=== PATIENT | male | born 1985 | race Caucasian/White ===

== ENCOUNTER 2016-10-14 01:25 | Emergency (ER) | payer OTHER ==
[2016-10-14 01:42] VITALS: BP 147/93; PULSE 101; TEMP 98.2; BMI 26.1
--- NOTE | 2016-10-14 02:23 | PDOC ---
History of Present Illness <Jaz Pennington - Last Filed: 10/14/16 03:07> - General History Source: Patient - History of Present Illness Initial Comments: 10/14/16 03:12 31-year-old male presents to the emergency department with his requesting for alcohol detox. Patient denies any headache, dizziness, lightheadedness, nausea/vomiting, fever/chills, neck pains, chest pain, shortness of breath, abdominal pains, flank pains, urinary symptoms, extremity numbness or tingling sensation. Patient states his last drink was earlier in the day. <RyderKathie - Last Filed: 10/14/16 03:13> - General Chief Complaint: Alcohol intoxication Stated Complaint: DETOX Time Seen by Provider: 10/14/16 02:20 Past History <Jaz Pennington - Last Filed: 10/14/16 03:07> - Past Medical History Anemia: No Asthma: No Cancer: No Cardiac Disorders: No CVA: No COPD: No CHF: No Dementia: No Diabetes: No GI Disorders: No Disorders: No HTN: No Hypercholesterolemia: No Kidney Stones: No Liver Disease: No Suicide Attempt (Hx): No Seizures: No Thyroid Disease: No - Surgical History Abdominal Surgery: No Appendectomy: No Cardiac Surgery: No Cholecystectomy: No Lung Surgery: No Neurologic Surgery: No Orthopedic Surgery: No - Reproductive History Testicular Surgery: No - Psycho/Social/Smoking Cessation Hx Anxiety: Yes Suicidal Ideation: No Smoking History: Never smoked Have you smoked in the past 12 months: No Hx Alcohol Use: Yes Drug/Substance Use Hx: No Substance Use Type: Alcohol Hx Substance Use Treatment: Yes <Kathie Soler - Last Filed: 10/14/16 03:13> - Past Medical History Allergies/Adverse Reactions: Allergies Allergy/AdvReac Type Severity Reaction Status Date / Time No Known Drug Allergies Allergy Unknown Verified 10/14/16 01:33 CASHEW Allergy Severe Swelling Uncoded 10/14/16 01:33 NKDA Allergy Uncoded 10/14/16 01:33 Home Medications: Ambulatory Orders NK [No Known Home Medication] 04/03/16 Review of Systems - Review of Systems Able to Perform ROS?: Yes Comments:: 10/14/16 03:13 CONSTITUTIONAL: Absent: fever, chills, diaphoresis, generalized weakness, malaise, loss of appetite HEENT: Absent: rhinorrhea, nasal congestion, throat pain, throat swelling, difficulty swallowing, mouth swelling, ear pain, eye pain, visual Changes CARDIOVASCULAR: Absent: chest pain, loss of consciousness, palpitations, irregular heart rate, peripheral edema RESPIRATORY: Absent: cough, shortness of breath, dyspnea with exertion, orthopnea, wheezing, stridor, hemoptysis GASTROINTESTINAL: Absent: abdominal pain, abdominal distension, nausea, vomiting, diarrhea, constipation, melena, hematochezia GENITOURINARY: Absent: dysuria, frequency, urgency, hesitancy, hematuria, flank pain, genital pain MUSCULOSKELETAL: Absent: myalgia, arthralgia, joint swelling SKIN: Absent: rash, itching, pallor HEMATOLOGIC/IMMUNOLOGIC: Absent: easy bleeding, easy bruising, lymphadenopathy, frequent infections ENDOCRINE: Absent: unexplained weight gain, unexplained weight loss, heat intolerance, cold intolerance NEUROLOGIC: Absent: headache, focal weakness or paresthesias, dizziness, unsteady gait, seizure, mental status changes, bladder or bowel incontinence PSYCHIATRIC: Absent: anxiety, depression, suicidal or homicidal ideation, hallucinations. Is the patient limited Icelandic proficient: No <Kathie Soler - Last Filed: 10/14/16 03:13> *Physical Exam - Vital Signs Last Vital Signs Temp Pulse Resp BP Pulse Ox 98.2 F 101 H 20 147/93 99 10/14/16 01:28 10/14/16 01:28 10/14/16 01:28 10/14/16 01:28 10/14/16 01:28 <Jaz Pennington - Last Filed: 10/14/16 03:07> - Vital Signs Last Vital Signs Temp Pulse Resp BP Pulse Ox 98.2 F 101 H 20 147/93 99 10/14/16 01:28 10/14/16 01:28 10/14/16 01:28 10/14/16 01:28 10/14/16 01:28 - Physical Exam Comments: 10/14/16 03:13 GENERAL: Well developed, well nourished. Awake and alert. No acute distress. HEENT: Normocephalic, atraumatic. PERRLA, EOMI. No conjunctival pallor. Sclera are non- icteric. Moist mucous membranes. Oropharynx is clear. NECK: Supple. Full ROM. No JVD. Carotid pulses 2+ and symmetric, without bruits. No thyromegaly. No lymphadenopathy. CARDIOVASCULAR: Regular rate and rhythm. No murmurs, rubs, or gallops. Distal pulses are 2+ and symmetric. PULMONARY: No evidence of respiratory distress. Lungs clear to auscultation bilaterally. No wheezing, rales or rhonchi. ABDOMINAL: Soft. Non-tender. Non-distended. No rebound or guarding. No organomegaly. Normoactive bowel sounds. MUSCULOSKELETAL Normal range of motion at all joints. No bony deformities or tenderness. No CVA tenderness. EXTREMITIES: No cyanosis. No clubbing. No edema. No calf tenderness. SKIN: Warm and dry. Normal capillary refill. No rashes. No jaundice. NEUROLOGICAL: Alert, awake, appropriate. Cranial nerves 2-12 intact. No deficits to light touch and temperature in face, upper extremities and lower extremities. No motor deficits in the in face, upper extremities and lower extremities. Normoreflexic in the upper and lower extremities. Normal speech. Toes are down- going bilaterally. Gait is normal without ataxia. PSYCHIATRIC: Cooperative. Good eye contact. Appropriate mood and affect. <Kathie Soler - Last Filed: 10/14/16 03:13> *DC/Admit/Observation/Transfer - Discharge Dispostion Admit: No <Jaz Pennington - Last Filed: 10/14/16 03:07> <Kathie Soler - Last Filed: 10/14/16 03:13> Diagnosis at time of Disposition: Alcohol dependence, Alcohol dependence with uncomplicated withdrawal - Discharge Dispostion Disposition: I.P. ALCOHOL/SUBS ABUSE REHAB Condition at time of disposition: Stable - Referrals Referrals: STAFF,NOT ON [Primary Care Provider] - - Patient Instructions Printed Discharge Instructions: DI for Alcohol Abuse
--- NOTE | 2016-10-18 17:35 | EKG ---
Test Reason : Blood Pressure : / mmHG Vent. Rate : 086 BPM Atrial Rate : 086 BPM P-R Int : 160 ms QRS Dur : 078 ms QT Int : 384 ms P-R-T Axes : 054 064 050 degrees QTc Int : 459 ms NORMAL SINUS RHYTHM NORMAL ECG WHEN COMPARED WITH ECG OF 20-JUN-2013 08:36, NO SIGNIFICANT CHANGE WAS FOUND Confirmed by ADRIANNA ORELLANA MD ([id number]) on 10/18/2016 5:35:06 PM Referred By: Confirmed By:ADRIANNA ORELLANA MD
== END 2016-10-14 03:15 | disposition other institution (70) ==
LOC: JER 01:25
DX: F10.120 Alcohol abuse with intoxication, uncomplicated (principal)
CPT/HCPCS: 93005; 93010; 99282-25

== ENCOUNTER 2016-10-14 03:26 | Inpatient (IN) | payer OTHER ==
--- NOTE | 2016-10-14 03:44 | HP ---
CIWA Score - CIWA Score Nausea/Vomitin Muscle Tremors: 4-Moderate,w/Arms Extend Anxiety: 3 Agitation: 3 Paroxysmal Sweats: 3 Orientation: 1-Uncertain about Date Tacttile Disturbances: 2-Mild Itch/Numbness/Burn Auditory Disturbances: 1-Very Mild Visual Disturbances: 1-Very Mild Sensitivity Headache: 2-Mild CIWA-Ar Total Score: 23 Admission ROS BHS - HPI Chief Complaint: WITHDRAWAL SYMPTOMS Allergies/Adverse Reactions: Allergies Allergy/AdvReac Type Severity Reaction Status Date / Time No Known Drug Allergies Allergy Unknown Verified 10/14/16 01:33 CASHEW Allergy Severe Swelling Uncoded 10/14/16 01:33 NKDA Allergy Uncoded 10/14/16 01:33 History of Present Illness: 31 Y.O. MAN WITH AN EXTENSIVE H/O OF ALCOHOL DEPENDENCE WAS SENT OVER FROM [facility] FOR DETOX. HE WAS LAST HERE FOR DETOX ON 04/06/16. HE HAS A H/O ETOH RELATED SEIZURES. Exam Limitations: Intoxication - Ebola screening Have you traveled outside of the country in the last 21 days: No - Review of Systems Constitutional: Loss of Appetite, Night Sweats, Changes in sleep EENT: reports: Double Vision, Tearing Respiratory: reports: Shortness of Breath Cardiac: reports: Lightheadedness GI: reports: Constipated : reports: No Symptoms Reported Musculoskeletal: reports: Neck Pain Integumentary: reports: No Symptoms Reported Neuro: reports: Numbness, Tingling, Tremors, Unsteady Gait Endocrine: reports: No Symptoms Reported Hematology: reports: No Symptoms Reported Psychiatric: reports: Mood/Affect Appropiate, Anxious Other Systems: Reviewed and Negative Patient History - Patient Medical History Hx Anemia: No Hx Asthma: No Hx Chronic Obstructive Pulmonary Disease (COPD): No Hx Cancer: No Hx Cardiac Disorders: No Hx Congestive Heart Failure: No Hx Hypertension: No Hx Hypercholesterolemia: No Hx Pacemaker: No HX Cerebrovascular Accident: No Hx Seizures: Yes (H/O ETOH RELATED SEIZURES) Hx Dementia: No Hx Diabetes: No Hx Gastrointestinal Disorders: No Hx Liver Disease: No Hx Genitourinary Disorders: No Hx Sexually Transmitted Disorders: No Hx Renal Disease (ESRD): No Hx Thyroid Disease: No Hx Human Immunodeficiency Virus (HIV): No Hx Hepatitis C: No Hx Depression: Yes Hx Suicide Attempt: No Hx Bipolar Disorder: No Hx Schizophrenia: No - Patient Surgical History Past Surgical History: No Hx Neurologic Surgery: No Hx Cataract Extraction: No Hx Cardiac Surgery: No Hx Lung Surgery: No Hx Breast Surgery: No Hx Breast Biopsy: No Hx Abdominal Surgery: No Hx Appendectomy: No Hx Cholecystectomy: No Hx Genitourinary Surgery: No Hx Section: No Hx Orthopedic Surgery: No Anesthesia Reaction: No - PPD History Previous Implant?: Yes Documented Results: Negative w/proof Implanted On Prior [facility] Admission?: Yes Date: 04/05/16 PPD to be Administered?: No - Reproductive History Patient is a Female of Child Bearing Age (11 -55 yrs old): No - Smoking Cessation Smoking history: Former smoker Have you smoked in the past 12 months: No Hx Chewing Tobacco Use: No Initiated information on smoking cessation: Yes 'Breaking Loose' booklet given: 10/14/16 - Substance & Tx. History Hx Alcohol Use: Yes Hx Substance Use: No Substance Use Type: Alcohol Hx Substance Use Treatment: Yes (DETOX ) - Substances Abused Alcohol Route: Oral Frequency: Daily Amount used: 2 PINTS OF LIQUOR + 6 PACKS OF BEER Age of first use: 16 Date of Last Use: 10/14/16 Family Disease History - Family Disease History Family Disease History: Heart Disease: Father (HTN), Other: Grandparent ( ALCOHOLISM), Mother (SLE) Admission Physical Exam BHS - Vital Signs Vital Signs: Last Vital Signs Temp Pulse Resp BP Pulse Ox 98 F 96 H 17 143/82 10/14/16 04:09 10/14/16 04:09 10/14/16 04:09 10/14/16 04:09 - Physical General Appearance: Yes: Alcohol on Breath, Intoxicated, Tremorous, Irritable, Anxious HEENTM: Yes: Normocephalic, Normal Voice Respiratory: Yes: Chest Non-Tender, Lungs Clear, Normal Breath Sounds, No Respiratory Distress, No Accessory Muscle Use Neck: Yes: No masses,lesions,Nodules, Trachea in good position Breast: Yes: Breast Exam Deferred Cardiology: Yes: Regular Rhythm, Regular Rate, S1, S2 Abdominal: Yes: Non Tender, Flat Genitourinary: Yes: Other (NO COMPLAINTS REPORTED) Back: Yes: Normal Inspection Musculoskeletal: Yes: Within Normal Limits Extremities: Yes: Tremors Neurological: Yes: Alert Integumentary: Yes: Normal Color, Dry, Warm Lymphatic: Yes: Within Normal Limits - Diagnostic (1) Alcohol dependence with uncomplicated withdrawal Current Visit: Yes Status: Chronic (2) History of seizure Current Visit: Yes Status: Chronic Cleared for Admission [facility] - Detox or Rehab [facility] Level of Care: Medically Managed Detox Regimen/Protocol: Librium S Breath Alcohol Content Breath Alcohol Content: 0.330 Vital Signs - Vital Signs Vital Signs Refused: No Temperature: 98 F Temperature Source: Oral Pulse Rate: 96 Respiratory Rate: 17 Blood Pressure: 143/82 BP Location: Left Arm Blood Pressure Position: Sitting - Height Height: 5 ft 6 in - Weight Weight: 160 lb Weight Measurement Method: Standing Scale Body Mass Index (BMI): 25.8 - Bowel Function Bowel Movement: Yes Urine Drug Screen - Test Device Lot Number: [id number] Expiration Date: 05/16/18 - Control Is Test Valid: Yes - Results Drug Screen Negative: Yes
[2016-10-14] MEDS ORDERED: ACETAMINOPHEN 325 MG TABLET (FP) PO PRN (03:54)
[2016-10-14] MEDS ORDERED: MAG HYDROX/AL HYDROX/SIMETH 30 ML UNIT-DOSE CUP PO PRN (03:54)
[2016-10-14] MEDS ORDERED: chlordiazePOXIDE HCL 25 MG CAPSULE PO ONE (03:54)
[2016-10-14] MEDS ORDERED: IBUPROFEN 400 MG TABLET (FP) PO PRN (03:54)
[2016-10-14] MEDS ORDERED: MAGNESIUM CITRATE 300 ML BOTTLE PO PRN (03:54)
[2016-10-14] MEDS ORDERED: P-EPHED 60MG/TRIPROLIDI 2.5MG TABLET PO PRN (03:54)
[2016-10-14] MEDS ORDERED: guaiFENesin/D-METHORPHAN HB 10 ML UNIT-DOSE CUPS PO PRN (03:54)
[2016-10-14] MEDS ORDERED: MENTHOL/PHENOL 1 EACH UD MM PRN (03:54)
[2016-10-14] MEDS ORDERED: MAGNESIUM HYDROX 2400MG/30ML ORAL SUSPENSION 30 ML CUP PO PRN (03:54)
[2016-10-14] MEDS ORDERED: LOPERAMIDE HCL 2 MG CAPSULE PO PRN (03:54)
[2016-10-14 04:09] VITALS: BMI 25.8
[2016-10-14] MEDS: chlordiazePOXIDE HCL 25 MG CAPSULE PO SCH ×4 (04:58→22:08)
[2016-10-14] MEDS: hydrOXYzine PAMOATE 50 MG CAPSULE (FP) PO PRN ×2 (08:29→15:08)
[2016-10-14] MEDS: chlordiazePOXIDE HCL 25 MG CAPSULE PO PRN ×3 (08:29→18:39)
[2016-10-14] MEDS: PRENATAL VITAMINS W/ FOLIC ACID TABLET (FP) PO SCH (10:55)
[2016-10-14 12:23] LABS: URINE APPEARANCE CLEAR; URINE BILIRUBIN NEGATIVE (NEGATIVE); URINE COLOR YELLOW; URINE GLUCOSE (UA) NEGATIVE (NEGATIVE); URINE KETONE 2+ (NEGATIVE); URINE LEUK ESTERASE NEGATIVE (NEGATIVE); URINE NITRITE NEGATIVE (NEGATIVE); URINE UROBILINOGEN NEGATIVE E.U./dl (0.2-1.0)
[2016-10-14 12:25] LABS: URINE BLOOD 2+ (NEGATIVE); URINE PROTEIN 2+ (NEGATIVE)
[2016-10-14 12:34] LABS: GRANULAR CASTS 11 /lpf; URINE HYALINE CAST 3 /lpf; URINE MUCUS RARE; URINE RBC <1 /hpf (0-3); URINE WBC 1 /hpf (3-5)
--- NOTE | 2016-10-14 16:07 | PN ---
S Progress Note Note: patient complaint of palpitation and heart is racing ekg showed nsr,normal ekg,rate 97 impresion anxiety treatment vistaril 50 mgs po q 4hrs prn for anxiety close monitoring,continue detox
[2016-10-14] MEDS: THIAMINE HCL 100 MG TABLET (FP) PO SCH (22:08)
--- NOTE | 2016-10-15 00:13 | EKG ---
Test Reason : Blood Pressure : / mmHG Vent. Rate : 081 BPM Atrial Rate : 081 BPM P-R Int : 156 ms QRS Dur : 084 ms QT Int : 408 ms P-R-T Axes : 044 067 068 degrees QTc Int : 473 ms NORMAL SINUS RHYTHM NORMAL ECG WHEN COMPARED WITH ECG OF 14-OCT-2016 02:25, NO SIGNIFICANT CHANGE WAS FOUND Confirmed by ADRIANNA ORELLANA MD ([id number]) on 10/15/2016 12:13:09 AM Referred By: Confirmed By:ADRIANNA ORELLANA MD
[2016-10-15] MEDS: chlordiazePOXIDE HCL 25 MG CAPSULE PO SCH ×4 (06:03→22:17)
[2016-10-15 10:00] LABS: MCH 28.1 pg (25.7-33.7); MCHC 32.7 g/dl (32.0-35.9); MEAN CELL VOLUME 85.8 fl (80-96); MEAN PLT VOLUME 8.2 fl (7.5-11.1); PLATELET COUNT 96 K/MM3 (134-434); RDW 13.1 % (11.9-15.9); WHITE BLOOD COUNT 2.3 K/mm3 (4.0-10.0)
[2016-10-15 10:03] LABS: ALBUMIN 4.2 g/dl (3.4-5.0); ANION GAP 9 (8-16); CALCIUM 9.1 mg/dL (8.5-10.1); CO2 34 mmol/L (21-32); GLUCOSE,RANDOM 99 mg/dL (74-106)
[2016-10-15 10:05] LABS: ALK PHOS 73 U/L (45-117); BILIRUBIN,TOTAL 1.3 mg/dL (0.2-1.0); COCKROFT - GAULT 120.95; CREATININE 0.9 mg/dL (0.7-1.3); SGOT/AST 100 U/L (15-37); SGPT/ALT 106 U/L (12-78); TOT PROT 7.7 g/dl (6.4-8.2)
--- NOTE | 2016-10-15 10:21 | EKG ---
Test Reason : Blood Pressure : / mmHG Vent. Rate : 097 BPM Atrial Rate : 097 BPM P-R Int : 148 ms QRS Dur : 078 ms QT Int : 368 ms P-R-T Axes : 056 066 067 degrees QTc Int : 467 ms NORMAL SINUS RHYTHM NORMAL ECG WHEN COMPARED WITH ECG OF 14-OCT-2016 10:16, NO SIGNIFICANT CHANGE WAS FOUND Confirmed by CHARI RODRIGUEZ MD ([id number]) on 10/15/2016 10:21:44 AM Referred By: Tha Kapoor Confirmed By:CHARI RODRIGUEZ MD
--- NOTE | 2016-10-15 10:28 | PN ---
S CIWA - CIWA Score Nausea/Vomitin Muscle Tremors: 4-Moderate,w/Arms Extend Anxiety: 4-Mod. Anxious/Guarded Agitation: 3 Paroxysmal Sweats: 3 Orientation: 0-Oriented Tacttile Disturbances: 2-Mild Itch/Numbness/Burn Auditory Disturbances: 0-None Visual Disturbances: 0-None Headache: 0-None Present CIWA-Ar Total Score: 19 BHS Progress Note (SOAP) Subjective: interrupted sleep, cold sweats,anxious Objective: 10/15/16 10:25 Vital Signs Temperature 97.2 F L 10/15/16 06:00 Pulse Rate 75 10/15/16 06:00 Respiratory Rate 18 10/15/16 06:00 Blood Pressure 142/92 10/15/16 06:00 O2 Sat by Pulse Oximetry (%) Laboratory Tests 10/14/16 10/15/16 10/15/16 12:06 07:00 07:00 WBC 2.3 L D RBC 5.56 Hgb 15.6 Hct 47.7 MCV 85.8 MCHC 32.7 RDW 13.1 Plt Count 96 L D MPV 8.2 Sodium 135 L Potassium 3.5 Chloride 92 L Carbon Dioxide 34 H D Anion Gap 9 BUN 8 D Creatinine 0.9 Creat Clearance w eGFR > 60 Random Glucose 99 D Calcium 9.1 Total Bilirubin 1.3 H D AST 100 H D ALT 106 H D Alkaline Phosphatase 73 Total Protein 7.7 Albumin 4.2 Urine Color Yellow Urine Appearance Clear Urine pH 5.0 Ur Specific [place] 1.019 Urine Protein 2+ H Urine Glucose (UA) Negative Urine Ketones 2+ H Urine Blood 2+ H Urine Nitrite Negative Urine Bilirubin Negative Urine Urobilinogen Negative Ur Leukocyte Esterase Negative Urine RBC <1 Urine WBC 1 Ur Epithelial Cells Rare Hyaline Casts 3 Granular Casts 11 Urine Mucus Rare pt aox3 lying in bed , + tremors, +anxiety 10/15/16 10:27 Assessment: 10/15/16 10:27 withdrawal sx;s elevated transaminase leucopenia thrombocytoppenia 10/15/16 10:28 Plan: cont. detox increase fluids librium prn sgot/sgpt
[2016-10-15] MEDS: PRENATAL VITAMINS W/ FOLIC ACID TABLET (FP) PO SCH (11:02)
--- NOTE | 2016-10-15 12:57 | CONSULT ---
[facility] Psychiatric Consult - Data Date of interview: 10/15/16 Admission source: [facility] Identifying data: Readmission to [facility] for this 31 y/o Burmese male seeking detox treatment,on ,for alcohol dependence.Patient is single without children,domiciled and supported on odd jobs. Substance Abuse History: - Smoking Cessation. Smoking history: Former smoker. Have you smoked in the past 12 months: No. Hx Chewing Tobacco Use: No. Initiated information on smoking cessation: Yes. 'Breaking Loose' booklet given : 10/14/16. - Substance & Tx. History. Hx Alcohol Use: Yes. Hx Substance Use : No. Substance Use Type: Alcohol. Hx Substance Use Treatment: Yes (DETOX ). - Substances Abused. Alcohol. Route: Oral. Frequency: Daily. Amount used : 2 PINTS OF LIQUOR + 6 PACKS OF BEER. Age of first use: 16. Date of Last Use : 10/14/16. Confirmed by patient. Medical History: Patient endorses good general health. Psychiatric History: No reported history of psychiatric hospitalizations.Mr Ornelas indicates that he is currently seeing a private therapist to address anxiety issues (only psychotherapy).Patient denies history of suicide attempts. Physical/Sexual Abuse/Trauma History: Patient denies. Additional Comment: - Results. Drug Screen is negative. Mental Status Exam - Mental Status Exam Alert and Oriented to: Time, Place, Person Cognitive Function: Good Patient Appearance: Well Groomed Mood: Withdrawn, Anxious, Apprehensive Affect: Mood Congruent Patient Behavior: Fatigued, Appropriate, Cooperative Speech Pattern: Clear Voice Loudness: Normal Thought Process: Goal Oriented Thought Disorder: Not Present Hallucinations: Denies Suicidal Ideation: Denies Homicidal Ideation: Denies Insight/Judgement: Poor Sleep: Poorly, Difficulty falling asleep Appetite: Good Muscle strength/Tone: Normal Gait/Station: Normal Psychiatric Findings - Problem List ([place] 1, 2,3) (1) Alcohol dependence with uncomplicated withdrawal Current Visit: Yes Status: Acute (2) Alcohol-induced mood disorder Current Visit: Yes Status: Acute (3) Insomnia Current Visit: Yes Status: Acute - Initial Treatment Plan Initial Treatment Plan: Psychoeducation.Sleep hygiene discussed with patient.Medication : ambien 10 mg po hs.Ordered.Patient made aware of potential for parasomnias.He agrees with this careplan.Observation.
[2016-10-15] MEDS: chlordiazePOXIDE HCL 25 MG CAPSULE PO PRN (15:37)
[2016-10-15] MEDS ORDERED: ZOLPIDEM TARTRATE 10 MG TABLET (PARK CARE ONLY) PO PRN (22:00)
[2016-10-15] MEDS: THIAMINE HCL 100 MG TABLET (FP) PO SCH (22:18)
[2016-10-15] MEDS: diphenhydrAMINE HCL 50 MG CAPSULE PO PRN (23:09)
[2016-10-16] MEDS: chlordiazePOXIDE 5 MG CAPSULE PO SCH ×4 (06:13→22:16)
[2016-10-16 10:22] LABS: SGOT/AST 138 U/L (15-37); SGPT/ALT 114 U/L (12-78)
[2016-10-16] MEDS: PRENATAL VITAMINS W/ FOLIC ACID TABLET (FP) PO SCH (10:49)
[2016-10-16] MEDS: hydrOXYzine PAMOATE 50 MG CAPSULE (FP) PO PRN (10:49)
--- NOTE | 2016-10-16 11:22 | PN ---
[facility] CIWA - CIWA Score Nausea/Vomitin-No Nausea/No Vomiting Muscle Tremors: 3 Anxiety: 2 Agitation: 3 Paroxysmal Sweats: 3 Orientation: 0-Oriented Tacttile Disturbances: 0-None Auditory Disturbances: 0-None Visual Disturbances: 0-None Headache: 0-None Present CIWA-Ar Total Score: 11 [facility] Progress Note (SOAP) Subjective: sweats irritable agitation Objective: 10/16/16 11:21 Vital Signs Temperature 97.3 F L 10/16/16 09:45 Pulse Rate 74 10/16/16 09:45 Respiratory Rate 16 10/16/16 09:45 Blood Pressure 124/68 10/16/16 09:45 O2 Sat by Pulse Oximetry (%) Laboratory Tests 10/14/16 10/15/16 10/15/16 12:06 07:00 07:00 WBC 2.3 L D RBC 5.56 Hgb 15.6 Hct 47.7 MCV 85.8 MCHC 32.7 RDW 13.1 Plt Count 96 L D MPV 8.2 Sodium 135 L Potassium 3.5 Chloride 92 L Carbon Dioxide 34 H D Anion Gap 9 BUN 8 D Creatinine 0.9 Creat Clearance w eGFR > 60 Random Glucose 99 D Calcium 9.1 Total Bilirubin 1.3 H D AST 100 H D ALT 106 H D Alkaline Phosphatase 73 Total Protein 7.7 Albumin 4.2 Urine Color Yellow Urine Appearance Clear Urine pH 5.0 Ur Specific [place] 1.019 Urine Protein 2+ H Urine Glucose (UA) Negative Urine Ketones 2+ H Urine Blood 2+ H Urine Nitrite Negative Urine Bilirubin Negative Urine Urobilinogen Negative Ur Leukocyte Esterase Negative Urine RBC <1 Urine WBC 1 Ur Epithelial Cells Rare Hyaline Casts 3 Granular Casts 11 Urine Mucus Rare RPR Titer 10/15/16 10/16/16 07:00 07:00 WBC RBC Hgb Hct MCV MCHC RDW Plt Count MPV Sodium Potassium Chloride Carbon Dioxide Anion Gap BUN Creatinine Creat Clearance w eGFR Random Glucose Calcium Total Bilirubin AST 138 H D ALT 114 H Alkaline Phosphatase Total Protein Albumin Urine Color Urine Appearance Urine pH Ur Specific [place] Urine Protein Urine Glucose (UA) Urine Ketones Urine Blood Urine Nitrite Urine Bilirubin Urine Urobilinogen Ur Leukocyte Esterase Urine RBC Urine WBC Ur Epithelial Cells Hyaline Casts Granular Casts Urine Mucus RPR Titer Nonreactive awake/alert ambulating no acute distress Assessment: 10/16/16 11:21 withdrawal sx Plan: continue detox increase fluids d/c in am
[2016-10-16] MEDS: THIAMINE HCL 100 MG TABLET (FP) PO SCH (22:16)
[2016-10-17] MEDS: diphenhydrAMINE HCL 50 MG CAPSULE PO PRN (00:41)
[2016-10-17] MEDS: chlordiazePOXIDE HCL 10 MG CAPSULE PO SCH ×2 (06:18→10:53)
--- NOTE | 2016-10-17 09:10 | DS ---
[facility] Detox Discharge Summary Admission Date: 10/14/16 Discharge Date: 10/17/16 - History Present History: Alcohol Dependence - Physical Exam Results Vital Signs: Vital Signs Temperature 97 F L 10/17/16 06:34 Pulse Rate 56 L 10/17/16 06:34 Respiratory Rate 16 10/17/16 06:34 Blood Pressure 100/58 10/17/16 06:34 O2 Sat by Pulse Oximetry (%) - Treatment Hospital Course: Detox Protocol Followed, Detoxed Safely, Responded well, Discharged Condition Good - Medication Discharge Medications: Ambulatory Orders NK [No Known Home Medication] 04/03/16 - Diagnosis (1) Alcohol dependence with uncomplicated withdrawal Current Visit: Yes Status: Chronic (2) Insomnia Current Visit: Yes Status: Chronic Qualifiers: Insomnia type: unspecified Qualified Code(s): G47.00 - Insomnia, unspecified (3) History of seizure Current Visit: Yes Status: Chronic - AMA Did Patient Leave Against Medical Advice: No
[2016-10-17 09:48] VITALS: BP 130/92; PULSE 7; TEMP 97.3
[2016-10-17] MEDS: PRENATAL VITAMINS W/ FOLIC ACID TABLET (FP) PO SCH (10:52)
== END 2016-10-17 11:57 | disposition other institution (70) | DRG 775 ==
LOC: YASAS 03:26 → Y6N 03:36
PROVIDERS: ADMIT Internal Medicine; ATTEND Internal Medicine Addiction Medicine
PROC: HZ2ZZZZ Detoxification Services for Substance Abuse Treatment (ICD-10-PCS; principal; 2016-10-14)
DX: F10.230 Alcohol dependence with withdrawal, uncomplicated (principal); F10.24 Alcohol dependence with alcohol-induced mood disorder; F41.9 Anxiety disorder, unspecified; G47.00 Insomnia, unspecified; R74.0 Nonspecific elevation of levels of transaminase and lactic acid dehydrogenase [LDH]; D72.819 Decreased white blood cell count, unspecified; D69.6 Thrombocytopenia, unspecified; Z86.69 Personal history of other diseases of the nervous system and sense organs; Z87.891 Personal history of nicotine dependence
CPT/HCPCS: 36415; 80053; 81003; 81015; 84450; 84460; 85027; 86593; 93005; 93010

== ENCOUNTER 2016-10-17 12:14 | Inpatient (IN) | payer OTHER ==
[2016-10-17] MEDS ORDERED: MENTHOL/PHENOL 1 EACH UD MM PRN (14:26)
[2016-10-17] MEDS ORDERED: MAG HYDROX/AL HYDROX/SIMETH 30 ML UNIT-DOSE CUP PO PRN (14:26)
[2016-10-17] MEDS ORDERED: guaiFENesin/D-METHORPHAN HB 10 ML UNIT-DOSE CUPS PO PRN (14:26)
[2016-10-17] MEDS ORDERED: MAGNESIUM HYDROX 2400MG/30ML ORAL SUSPENSION 30 ML CUP PO PRN (14:26)
[2016-10-17] MEDS ORDERED: LOPERAMIDE HCL 2 MG CAPSULE PO PRN (14:26)
[2016-10-17] MEDS ORDERED: P-EPHED 60MG/TRIPROLIDI 2.5MG TABLET PO PRN (14:26)
[2016-10-17] MEDS ORDERED: MAGNESIUM CITRATE 300 ML BOTTLE PO PRN (14:26)
[2016-10-17] MEDS ORDERED: IBUPROFEN 400 MG TABLET (FP) PO PRN (14:26)
--- NOTE | 2016-10-17 21:15 | HP ---
[facility] Rehab Assess/Revision - Admission History Admitted to Rehab from: [facility] Date of Admission to Rehab: 10/17/16 - Vital signs Vital Signs: Vital Signs Period Temp Pulse Resp BP Sys/Resendiz Pulse Ox Last 24 Hr 98.1 F 89 18 127/70 - Findings Detox History & Physical reviewed: Yes Concur with findings: Yes Comments/Additional Findings: transferred from detox to rehab admission as per protocol
[2016-10-17] MEDS: THIAMINE HCL 100 MG TABLET (FP) PO SCH (21:40)
[2016-10-17] MEDS: diphenhydrAMINE HCL 50 MG CAPSULE PO PRN (22:02)
[2016-10-18] MEDS: PRENATAL VITAMINS W/ FOLIC ACID TABLET (FP) PO SCH (10:07)
[2016-10-18] MEDS ORDERED: hydrOXYzine PAMOATE 25 MG CAPSULE (FP) PO PRN (14:26)
--- NOTE | 2016-10-18 14:47 | HP ---
Psychiatrist Admission - Data Date of interview: 10/18/16 Admission source: 6N Identifying data: This is the first 5N inpatient rehabilitation for this 31 year old Salvadorean male who is single without children,domiciled and supported on odd jobs. Medical History: alcohol related seizure, last seizure episode was 10/13/16 Psychiatric History: Patient reports history of anxiety, social phobia and panic attacks, never met with a psychiatrist, states he saw a [facility] therapist and was in therapy sessions once a week about 2 years, he reports due to not having medical coverage he could not continue his treatment and stopped seing a therapist 2 years ago. Reports he currently anxious and cannot sleep well. Physical/Sexual Abuse/Trauma History: Denies history of sexual, physical and verbal abuse. Additional Comment: reports he dropped out from 11 th grade, has some work experience, has a half brother. Vital Signs: Vital Signs - 24 hr 10/18/16 10/18/16 10/18/16 00:44 03:50 07:02 Temperature 97.6 F Pulse Rate 71 71 66 Respiratory 15 16 18 Rate Blood Pressure 131/82 Allergies/Adverse Reactions: Allergies Allergy/AdvReac Type Severity Reaction Status Date / Time No Known Drug Allergies Allergy Unknown Verified 10/17/16 12:24 CASHEW Allergy Severe Swelling Uncoded 10/17/16 12:24 NKDA Allergy Uncoded 10/17/16 12:24 Date of last physical exam: 10/14/16 Concur with the findings of this exam: Yes - Substance Abuse/Tx History Hx Alcohol Use: Yes (daily 1 pint of vodka, beer) Hx Substance Use: No Substance Use Type: Alcohol Hx Substance Use Treatment: Yes (I outpatient not completed) - Admission Criteria Previous failed treatment: Yes Poor recovery environment: Yes Comorbidities: Yes Lacks judgement: Yes Mental Status Exam - Mental Status Exam Alert and Oriented to: Time, Place, Person Cognitive Function: Grossly Intact Patient Appearance: Well Groomed Mood: Anxious Affect: Mood Congruent, Flat, Blunted Patient Behavior: Suspicious, Appropriate, Cooperative Speech Pattern: Appropriate Voice Loudness: Normal Thought Process: Intact Thought Disorder: Not Present Hallucinations: Denies Suicidal Ideation: Denies Homicidal Ideation: Denies Insight/Judgement: Fair Sleep: Poorly, Difficulty falling asleep Appetite: Fair Muscle strength/Tone: Normal Psychiatric Findings - Problem List ([place] 1, 2,3) (1) Alcohol dependence Current Visit: No Status: Acute (2) Alcohol-induced mood disorder Current Visit: No Status: Acute (3) RODOLFO (generalized anxiety disorder) Current Visit: Yes Status: Acute (4) Panic disorder Current Visit: Yes Status: Acute - Initial Treatment Plan Initial Treatment Plan: Discussed with the patient indications and properties of remeron, campral, gabapentin, patient reported that he will start only remeron. Will add remeron and vistaril prn, continue to monotor progress.
[2016-10-18] MEDS: diphenhydrAMINE HCL 50 MG CAPSULE PO PRN (22:02)
[2016-10-18] MEDS: THIAMINE HCL 100 MG TABLET (FP) PO SCH (22:02)
[2016-10-18] MEDS: MIRTAZAPINE 15 MG TABLET (FP) PO SCH (22:03)
[2016-10-19] MEDS: PRENATAL VITAMINS W/ FOLIC ACID TABLET (FP) PO SCH (10:14)
[2016-10-19] MEDS: MIRTAZAPINE 15 MG TABLET (FP) PO SCH (21:52)
[2016-10-19] MEDS: diphenhydrAMINE HCL 50 MG CAPSULE PO PRN (21:52)
[2016-10-19] MEDS: THIAMINE HCL 100 MG TABLET (FP) PO SCH (21:52)
[2016-10-20 07:26] VITALS: BP 124/65; PULSE 68; TEMP 97.4
[2016-10-20] MEDS: PRENATAL VITAMINS W/ FOLIC ACID TABLET (FP) PO SCH (13:32)
--- NOTE | 2016-10-22 13:54 | PN ---
S Progress Note Note: Patient signed out AMA on October,, please see medical staff notes.
== END 2016-10-20 09:00 | disposition left against medical advice (07) | DRG 770 ==
LOC: YASAS 12:14 → Y5N 12:15
PROVIDERS: ADMIT Psychiatry & Neurology Psychiatry; ATTEND Psychiatry & Neurology Psychiatry
PROC: HZ42ZZZ Group Counseling for Substance Abuse Treatment, Cognitive-Behavioral (ICD-10-PCS; principal; 2016-10-20)
DX: F10.230 Alcohol dependence with withdrawal, uncomplicated (principal); F10.24 Alcohol dependence with alcohol-induced mood disorder; F41.1 Generalized anxiety disorder; F41.0 Panic disorder [episodic paroxysmal anxiety]

== ENCOUNTER 2017-02-24 09:00 | Inpatient (IN) | payer OTHER ==
[2017-02-24 09:35] VITALS: BMI 25.8
--- NOTE | 2017-02-24 09:49 | PN ---
S Progress Note Note: Pt. C/O chest pain,palpitation & numbness/weakness on the left side of body. Pt. consumes vodka 2-4 pints! Last Vital Signs Temp Pulse Resp BP Pulse Ox 98.1 F 108 H 20 144/93 98 % 02/24/17 09:34 02/24/17 09:34 02/24/17 09:34 02/24/17 09:34 RICHARD .353 Lungs : Clear A&P Heart : RR at HR 108-110 Dx. : 1)Non-specific chest pain 2)Left side Numbness/Weakness of undetermined etiology P : Transfer to ED for evaluation, report given to Dr. Edwards. If pt. is cleared, he'll return for admission to detox.
--- NOTE | 2017-02-24 17:31 | HP ---
CIWA Score - CIWA Score Nausea/Vomitin Muscle Tremors: 4-Moderate,w/Arms Extend Anxiety: 4-Mod. Anxious/Guarded Agitation: 4-Moderately Restless Paroxysmal Sweats: 3 Orientation: 0-Oriented Tacttile Disturbances: 1-Very Mild Itch/Numbness Auditory Disturbances: 0-None Visual Disturbances: 0-None Headache: 0-None Present CIWA-Ar Total Score: 19 Admission ROS BHS - HPI Chief Complaint: Withdrawal sx. Allergies/Adverse Reactions: Allergies Allergy/AdvReac Type Severity Reaction Status Date / Time No Known Drug Allergies Allergy Unknown Verified 02/24/17 10:41 CASHEW Allergy Severe Swelling Uncoded 02/24/17 10:41 NKDA Allergy Uncoded 02/24/17 10:41 History of Present Illness: 32 y/o man with a long hx. of alcoholism is admitted for detox. Pt. was here earlier & c/o chest pain,we sent him to ED for evaluation. Two sets of cardiac enzymes are negative. Exam Limitations: No Limitations - Ebola screening Have you traveled outside of the country in the last 21 days: No Have you had contact with anyone from an Ebola affected area: No Have you been sick,other than usual withdrawal symptoms: No Do you have a fever: No - Review of Systems Constitutional: Diaphoresis EENT: reports: No Symptoms Reported Respiratory: reports: No Symptoms reported Cardiac: reports: No Symptoms Reported GI: reports: Nausea, Vomiting, Abdominal cramping : reports: No Symptoms Reported Musculoskeletal: reports: No Symptoms Reported Integumentary: reports: Sweating Neuro: reports: Seizure (Alcohol withdrawal), Tremors Endocrine: reports: No Symptoms Reported Hematology: reports: No Symptoms Reported Psychiatric: reports: No Sypmtoms Reported Other Systems: Reviewed and Negative Patient History - Patient Medical History Hx Anemia: No Hx Asthma: No Hx Chronic Obstructive Pulmonary Disease (COPD): No Hx Cancer: No Hx Cardiac Disorders: No Hx Congestive Heart Failure: No Hx Hypertension: No Hx Hypercholesterolemia: No Hx Pacemaker: No HX Cerebrovascular Accident: No Hx Seizures: Yes (alcohol related seizure) Hx Dementia: No Hx Diabetes: No Hx Gastrointestinal Disorders: No Hx Liver Disease: No Hx Genitourinary Disorders: No Hx Sexually Transmitted Disorders: No Hx Renal Disease (ESRD): No Hx Thyroid Disease: No Hx Human Immunodeficiency Virus (HIV): No Hx Hepatitis C: No Hx Depression: No (RODOLFO) Hx Suicide Attempt: No Hx Bipolar Disorder: No Hx Schizophrenia: No - Patient Surgical History Past Surgical History: No Hx Neurologic Surgery: No Hx Cataract Extraction: No Hx Cardiac Surgery: No Hx Lung Surgery: No Hx Breast Surgery: No Hx Breast Biopsy: No Hx Abdominal Surgery: No Hx Appendectomy: No Hx Cholecystectomy: No Hx Genitourinary Surgery: No Hx Section: No Hx Orthopedic Surgery: No Anesthesia Reaction: No - PPD History Previous Implant?: Yes Documented Results: Negative w/proof Implanted On Prior [facility] Admission?: Yes Date: 04/05/16 Results: 0 mm PPD to be Administered?: No - Smoking Cessation Smoking history: Former smoker (Quit in 2004) Have you smoked in the past 12 months: No Cigars Per Day: 0 Hx Chewing Tobacco Use: No Initiated information on smoking cessation: No - Substance & Tx. History Hx Alcohol Use: Yes Hx Substance Use: No Substance Use Type: Alcohol Hx Substance Use Treatment: Yes (Detox at [facility] 09/2016) - Substances Abused Alcohol Route: Oral Frequency: Daily Amount used: Vodka 2-4 pints Age of first use: 16 Date of Last Use: 02/24/17 Family Disease History - Family Disease History Family Disease History: Heart Disease: Father (HTN), Other: Grandparent ( ALCOHOLISM), Mother (SLE) Admission Physical Exam S - Vital Signs Vital Signs: Vital Signs - 24 hr 02/24/17 02/24/17 09:34 17:15 Temperature 98.1 F 98.1 F Pulse Rate 108 H 108 H Respiratory 20 20 Rate Blood Pressure 144/93 144/93 - Physical General Appearance: Yes: Alcohol on Breath, Tremorous, Irritable, Sweating, Anxious HEENTM: Yes: Within Normal Limits Respiratory: Yes: Chest Non-Tender, Lungs Clear, Normal Breath Sounds Neck: Yes: Supple Breast: Yes: Breast Exam Deferred Cardiology: Yes: Regular Rhythm, Regular Rate, S1, S2 Abdominal: Yes: Normal Bowel Sounds, Non Tender, Soft Genitourinary: Yes: Within Normal Limits Back: Yes: Within Normal Limits Musculoskeletal: Yes: Within Normal Limits Extremities: Yes: Tremors Neurological: Yes: Fully Oriented, Alert Integumentary: Yes: Diaphoresis Lymphatic: Yes: Within Normal Limits - Diagnostic (1) Alcohol dependence with uncomplicated withdrawal Current Visit: No Status: Chronic Cleared for Admission [facility] - [facility] Level of Care: Medically Managed Detox Regimen/Protocol: Librium [facility] Breath Alcohol Content Breath Alcohol Content: 0.353 Urine Drug Screen - Results Drug Screen Negative: Yes
[2017-02-24] MEDS ORDERED: P-EPHED 60MG/TRIPROLIDI 2.5MG TABLET PO PRN (17:41)
[2017-02-24] MEDS ORDERED: guaiFENesin/D-METHORPHAN HB 10 ML UNIT-DOSE CUPS PO PRN (17:41)
[2017-02-24] MEDS ORDERED: ACETAMINOPHEN 325 MG TABLET (FP) PO PRN (17:41)
[2017-02-24] MEDS ORDERED: MAGNESIUM HYDROX 2400MG/30ML ORAL SUSPENSION 30 ML CUP PO PRN (17:41)
[2017-02-24] MEDS ORDERED: MAG HYDROX/AL HYDROX/SIMETH 30 ML UNIT-DOSE CUP PO PRN (17:41)
[2017-02-24] MEDS ORDERED: IBUPROFEN 400 MG TABLET (FP) PO PRN (17:41)
[2017-02-24] MEDS ORDERED: hydrOXYzine PAMOATE 50 MG CAPSULE (FP) PO PRN (17:41)
[2017-02-24] MEDS ORDERED: MENTHOL/PHENOL 1 EACH UD MM PRN (17:41)
[2017-02-24] MEDS ORDERED: MAGNESIUM CITRATE 300 ML BOTTLE PO PRN (17:41)
[2017-02-24] MEDS ORDERED: LOPERAMIDE HCL 2 MG CAPSULE PO PRN (17:41)
[2017-02-24] MEDS ORDERED: chlordiazePOXIDE HCL 25 MG CAPSULE PO PRN (17:41)
[2017-02-24] MEDS ORDERED: chlordiazePOXIDE HCL 25 MG CAPSULE PO ONE (17:41)
[2017-02-24 20:22] LABS: URINE APPEARANCE SLCLOUDY; URINE BILIRUBIN NEGATIVE (NEGATIVE); URINE BLOOD 2+ (NEGATIVE); URINE COLOR AMBER; URINE GLUCOSE (UA) 1+ (NEGATIVE); URINE KETONE 2+ (NEGATIVE); URINE LEUK ESTERASE NEGATIVE (NEGATIVE); URINE NITRITE NEGATIVE (NEGATIVE); URINE UROBILINOGEN NEGATIVE mg/dL (0.2-1.0)
[2017-02-24 20:24] LABS: URINE PROTEIN 3+ (NEGATIVE)
[2017-02-24 20:26] LABS: GRANULAR CASTS 39 /lpf; URINE HYALINE CAST 2 /lpf; URINE MUCUS MANY; URINE RBC 1 /hpf (0-3); URINE WBC 4 /hpf (3-5)
[2017-02-24] MEDS: chlordiazePOXIDE HCL 25 MG CAPSULE PO SCH (22:46)
[2017-02-24] MEDS: THIAMINE HCL 100 MG TABLET (FP) PO SCH (22:46)
[2017-02-24] MEDS: diphenhydrAMINE HCL 50 MG CAPSULE PO PRN (22:47)
[2017-02-25] MEDS: chlordiazePOXIDE HCL 25 MG CAPSULE PO SCH ×4 (05:22→22:39)
--- NOTE | 2017-02-25 08:51 | CONSULT ---
[facility] Psychiatric Consult - Data Date of interview: 02/25/17 Admission source: [facility] Identifying data: This is 32 years old male with no psychiatric hospitalization history ijntoxicated with: Alcohol Substance Abuse History: D to be Administered?: No. - Smoking Cessation. Smoking history: Former smoker (Quit in 2004). Have you smoked in the past 12 months: No. Cigars Per Day: 0. Hx Chewing Tobacco Use: No. Initiated information on smoking cessation: No. - Substance & Tx. History. Hx Alcohol Use: Yes. Hx Substance Use: No. Substance Use Type: Alcohol. Hx Substance Use Treatment: Yes (Detox at [facility] 09/2016). - Substances Abused. Alcohol. Route: Oral. Frequency: Daily. Amount used: Vodka 2-4 pints. Age of first use : 16. Date of Last Use: 02/24/17 Medical History: Seizure history Psychiatric History: Patioent reprots anxiety, as per chart carries RODOLFO, Panic disordr Physical/Sexual Abuse/Trauma History: Denies Additional Comment: Observation. Detox Unit Care Protocol Mental Status Exam - Mental Status Exam Alert and Oriented to: Person Cognitive Function: Fair Patient Appearance: Unkempt Mood: Sad Patient Behavior: Guarded Speech Pattern: Delayed Voice Loudness: Mildly Soft/Quiet Thought Process: Circumstantial Thought Disorder: Being Controlled Hallucinations: Denies Suicidal Ideation: Denies Homicidal Ideation: Denies Sleep: Difficulty falling asleep Appetite: Weight loss Muscle strength/Tone: Mild Hypotonicity Gait/Station: Shuffling Additional Comments: Observation. Detox Unit Care Protocol Psychiatric Findings - Problem List ([place] 1, 2,3) (1) Alcohol dependence Current Visit: No Status: Acute (2) Alcohol-induced mood disorder Current Visit: No Status: Acute (3) RODOLFO (generalized anxiety disorder) Current Visit: No Status: Acute (4) Panic disorder Current Visit: No Status: Acute (5) Alcohol dependence with uncomplicated withdrawal Current Visit: No Status: Chronic - Initial Treatment Plan Initial Treatment Plan: Observation. Detox Unit Care Protocol
[2017-02-25 10:12] LABS: MCH 28.3 pg (25.7-33.7); MCHC 32.6 g/dl (32.0-35.9); MEAN CELL VOLUME 86.5 fl (80-96); PLATELET COUNT 88 K/MM3 (134-434); RDW 15.3 % (11.9-15.9); WHITE BLOOD COUNT 2.6 K/mm3 (4.0-10.0)
[2017-02-25] MEDS: PRENATAL VITAMINS W/ FOLIC ACID TABLET (FP) PO SCH (10:40)
[2017-02-25 10:42] LABS: ALBUMIN 4.2 g/dl (3.4-5.0); ALK PHOS 65 U/L (45-117); ANION GAP 9 (8-16); BILIRUBIN,TOTAL 1.7 mg/dL (0.2-1.0); CALCIUM 9.2 mg/dL (8.5-10.1); CO2 32 mmol/L (21-32); CREATININE 0.7 mg/dL (0.7-1.3); GLUCOSE,RANDOM 98 mg/dL (74-106); SGOT/AST 124 U/L (15-37); SGPT/ALT 118 U/L (12-78); TOT PROT 7.3 g/dl (6.4-8.2)
--- NOTE | 2017-02-25 11:37 | PN ---
[facility] CIWA - CIWA Score Nausea/Vomitin-Mild Nausea/No Vomiting Muscle Tremors: 4-Moderate,w/Arms Extend Anxiety: 4-Mod. Anxious/Guarded Agitation: 3 Paroxysmal Sweats: 3 Orientation: 0-Oriented Tacttile Disturbances: 0-None Auditory Disturbances: 0-None Visual Disturbances: 0-None Headache: 0-None Present CIWA-Ar Total Score: 15 BHS Progress Note (SOAP) Subjective: Sweating,interrupted sleep,restless,tremors,anxiety. Objective: 02/25/17 11:36 Vital Signs - 8 hr 02/25/17 02/25/17 06:00 09:45 Temperature 97.5 F L 96.1 F L Pulse Rate 69 95 H Respiratory 18 18 Rate Blood Pressure 109/69 133/84 Laboratory Last Values WBC 2.6 K/mm3 (4.0-10.0) L D 02/25/17 07:00 RBC 5.17 M/mm3 (4.00-5.60) 02/25/17 07:00 Hgb 14.6 GM/dL (11.7-16.9) D 02/25/17 07:00 Hct 44.7 % (35.4-49) 02/25/17 07:00 MCV 86.5 fl (80-96) 02/25/17 07:00 MCH 28.3 pg (25.7-33.7) 02/25/17 07:00 MCHC 32.6 g/dl (32.0-35.9) 02/25/17 07:00 RDW 15.3 % (11.9-15.9) 02/25/17 07:00 Plt Count 88 K/MM3 (134-434) L D 02/25/17 07:00 MPV 8.0 fl (7.5-11.1) D 02/25/17 07:00 Sodium 136 mmol/L (136-145) 02/25/17 07:00 Potassium 3.7 mmol/L (3.5-5.1) 02/25/17 07:00 Chloride 95 mmol/L (98-107) L 02/25/17 07:00 Carbon Dioxide 32 mmol/L (21-32) D 02/25/17 07:00 Anion Gap 9 (8-16) 02/25/17 07:00 BUN 10 mg/dL (7-18) 02/25/17 07:00 Creatinine 0.7 mg/dL (0.7-1.3) 02/25/17 07:00 Creat Clearance w eGFR > 60 (>60) 02/25/17 07:00 Random Glucose 98 mg/dL (74-106) 02/25/17 07:00 Calcium 9.2 mg/dL (8.5-10.1) 02/25/17 07:00 Total Bilirubin 1.7 mg/dL (0.2-1.0) H D 02/25/17 07:00 AST 124 U/L (15-37) H D 02/25/17 07:00 ALT 118 U/L (12-78) H D 02/25/17 07:00 Alkaline Phosphatase 65 U/L (45-117) 02/25/17 07:00 Total Protein 7.3 g/dl (6.4-8.2) 02/25/17 07:00 Albumin 4.2 g/dl (3.4-5.0) 02/25/17 07:00 Urine Color Lina 02/24/17 19:38 Urine Appearance Slcloudy 02/24/17 19:38 Urine pH 5.0 (5.0-8.0) 02/24/17 19:38 Ur Specific [place] >= 1.030 (1.005-1.025) H 02/24/17 19:38 Urine Protein 3+ (NEGATIVE) H 02/24/17 19:38 Urine Glucose (UA) 1+ (NEGATIVE) H 02/24/17 19:38 Urine Ketones 2+ (NEGATIVE) H 02/24/17 19:38 Urine Blood 2+ (NEGATIVE) H 02/24/17 19:38 Urine Nitrite Negative (NEGATIVE) 02/24/17 19:38 Urine Bilirubin Negative (NEGATIVE) 02/24/17 19:38 Urine Urobilinogen Negative mg/dL (0.2-1.0) 02/24/17 19:38 Ur Leukocyte Esterase Negative (NEGATIVE) 02/24/17 19:38 Urine RBC 1 /hpf (0-3) 02/24/17 19:38 Urine WBC 4 /hpf (3-5) 02/24/17 19:38 Ur Epithelial Cells Rare /hpf (FEW) 02/24/17 19:38 Hyaline Casts 2 /lpf 02/24/17 19:38 Granular Casts 39 /lpf 02/24/17 19:38 Urine Mucus Many 02/24/17 19:38 labs noted, repeat u/a Assessment: 02/25/17 11:36 Withdrawal sx. Plan: Continue detox
[2017-02-25] MEDS: diphenhydrAMINE HCL 50 MG CAPSULE PO PRN (22:39)
[2017-02-25] MEDS: THIAMINE HCL 100 MG TABLET (FP) PO SCH (22:39)
--- NOTE | 2017-02-25 23:17 | EKG ---
Test Reason : Blood Pressure : / mmHG Vent. Rate : 092 BPM Atrial Rate : 092 BPM P-R Int : 158 ms QRS Dur : 080 ms QT Int : 378 ms P-R-T Axes : 042 059 051 degrees QTc Int : 467 ms NORMAL SINUS RHYTHM WITH SINUS ARRHYTHMIA NORMAL ECG WHEN COMPARED WITH ECG OF 24-FEB-2017 10:48, NO SIGNIFICANT CHANGE WAS FOUND Confirmed by MAICOL SALMON MD ([id number]) on 02/25/2017 11:17:35 PM Referred By: Confirmed By:MAICOL SALMON MD
[2017-02-26] MEDS: chlordiazePOXIDE HCL 25 MG CAPSULE PO SCH ×3 (05:32→17:55)
--- NOTE | 2017-02-26 10:20 | PN ---
S CIWA - CIWA Score Nausea/Vomitin Muscle Tremors: 4-Moderate,w/Arms Extend Anxiety: 4-Mod. Anxious/Guarded Agitation: 4-Moderately Restless Paroxysmal Sweats: 3 Orientation: 0-Oriented Tacttile Disturbances: 1-Very Mild Itch/Numbness Auditory Disturbances: 0-None Visual Disturbances: 0-None Headache: 1-Very Mild CIWA-Ar Total Score: 20 BHS COWS - Scale Resting Pulse: 0= [place] 80 or Below Sweatin= Chills/Flushing Restless Observation: 1= Difficult to Sit Still Pupil Size: 1= Pupils >than Normal Bone or Joint Aches: 1= Mild Discomfort Runny Nose/ Eye Tearin= Nasal Congestion GI Upset > 30mins: 2= Nausea/Diarrhea Tremor Observation of Outstretched Hands: 2= Slight Tremor Visible Yawning Observation: 1= 1-2x During Session Anxiety or Irritability: 2=Irritable/Anxious Goose Flesh Skin: 3=Piloerection COWS Score: 15 S Progress Note (SOAP) Subjective: nausa, sweats, itnerrupted sleep, anxiety, tremors Objective: 02/26/17 10:19 Vital Signs - 8 hr 02/26/17 02/26/17 03:30 06:42 Temperature 97.2 F L Pulse Rate 70 Respiratory 18 16 Rate Blood Pressure 119/61 Laboratory Tests 02/24/17 02/25/17 02/25/17 19:38 07:00 07:00 WBC 2.6 L D RBC 5.17 Hgb 14.6 D Hct 44.7 MCV 86.5 MCH 28.3 MCHC 32.6 RDW 15.3 Plt Count 88 L D MPV 8.0 D Sodium 136 Potassium 3.7 Chloride 95 L Carbon Dioxide 32 D Anion Gap 9 BUN 10 Creatinine 0.7 Creat Clearance w eGFR > 60 Random Glucose 98 Calcium 9.2 Total Bilirubin 1.7 H D AST 124 H D ALT 118 H D Alkaline Phosphatase 65 Total Protein 7.3 Albumin 4.2 Urine Color Lina Urine Appearance Slcloudy Urine pH 5.0 Ur Specific [place] >= 1.030 H Urine Protein 3+ H Urine Glucose (UA) 1+ H Urine Ketones 2+ H Urine Blood 2+ H Urine Nitrite Negative Urine Bilirubin Negative Urine Urobilinogen Negative Ur Leukocyte Esterase Negative Urine RBC 1 Urine WBC 4 Ur Epithelial Cells Rare Hyaline Casts 2 Granular Casts 39 Urine Mucus Many RPR Titer 02/25/17 07:00 WBC RBC Hgb Hct MCV MCH MCHC RDW Plt Count MPV Sodium Potassium Chloride Carbon Dioxide Anion Gap BUN Creatinine Creat Clearance w eGFR Random Glucose Calcium Total Bilirubin AST ALT Alkaline Phosphatase Total Protein Albumin Urine Color Urine Appearance Urine pH Ur Specific [place] Urine Protein Urine Glucose (UA) Urine Ketones Urine Blood Urine Nitrite Urine Bilirubin Urine Urobilinogen Ur Leukocyte Esterase Urine RBC Urine WBC Ur Epithelial Cells Hyaline Casts Granular Casts Urine Mucus RPR Titer Nonreactive Assessment: 02/26/17 10:19 withdrawal sx, elevated lfts Plan: cont detox, fluids
[2017-02-26] MEDS: PRENATAL VITAMINS W/ FOLIC ACID TABLET (FP) PO SCH (10:39)
[2017-02-26] MEDS: POTASSIUM CHLORIDE ORAL LIQUID 20 MEQ/15 ML PO SCH ×2 (11:00→22:30)
[2017-02-26] MEDS: THIAMINE HCL 100 MG TABLET (FP) PO SCH (22:29)
[2017-02-26] MEDS: chlordiazePOXIDE 5 MG CAPSULE PO SCH (22:29)
[2017-02-26] MEDS: diphenhydrAMINE HCL 50 MG CAPSULE PO PRN (22:32)
[2017-02-27] MEDS: chlordiazePOXIDE 5 MG CAPSULE PO SCH ×2 (05:24→10:23)
[2017-02-27 09:42] LABS: ALBUMIN 3.8 g/dl (3.4-5.0); ANION GAP 7 (8-16); BILIRUBIN,TOTAL 0.8 mg/dL (0.2-1.0); CALCIUM 9.2 mg/dL (8.5-10.1); CO2 30 mmol/L (21-32); GLUCOSE,RANDOM 85 mg/dL (74-106); SGOT/AST 362 U/L (15-37); SGPT/ALT 223 U/L (12-78); TOT PROT 6.8 g/dl (6.4-8.2)
--- NOTE | 2017-02-27 09:42 | PN ---
S Progress Note Note: Patient does not want to complete detox, will be signing out AMA, risks of not completing detox regimen as prescribed discussed. Nursing notified
[2017-02-27 09:44] LABS: ALK PHOS 60 U/L (45-117); CREATININE 0.7 mg/dL (0.7-1.3)
--- NOTE | 2017-02-27 09:44 | DS ---
[facility] Detox Discharge Summary Admission Date: 02/24/17 Discharge Date: 02/27/17 - History Present History: Alcohol Dependence Pertinent Past History: anxiety, depression, insomnia, nictoien dependence - Physical Exam Results Vital Signs: Vital Signs Temperature 96.8 F L 02/27/17 06:26 Pulse Rate 75 02/27/17 06:26 Respiratory Rate 18 02/27/17 06:26 Blood Pressure 102/61 02/27/17 06:26 O2 Sat by Pulse Oximetry (%) Laboratory Tests 02/24/17 02/25/17 02/25/17 19:38 07:00 07:00 WBC 2.6 L D RBC 5.17 Hgb 14.6 D Hct 44.7 MCV 86.5 MCH 28.3 MCHC 32.6 RDW 15.3 Plt Count 88 L D MPV 8.0 D Sodium 136 Potassium 3.7 Chloride 95 L Carbon Dioxide 32 D Anion Gap 9 BUN 10 Creatinine 0.7 Creat Clearance w eGFR > 60 Random Glucose 98 Calcium 9.2 Total Bilirubin 1.7 H D AST 124 H D ALT 118 H D Alkaline Phosphatase 65 Total Protein 7.3 Albumin 4.2 Urine Color Lina Urine Appearance Slcloudy Urine pH 5.0 Ur Specific [place] >= 1.030 H Urine Protein 3+ H Urine Glucose (UA) 1+ H Urine Ketones 2+ H Urine Blood 2+ H Urine Nitrite Negative Urine Bilirubin Negative Urine Urobilinogen Negative Ur Leukocyte Esterase Negative Urine RBC 1 Urine WBC 4 Ur Epithelial Cells Rare Hyaline Casts 2 Granular Casts 39 Urine Mucus Many RPR Titer 02/25/17 07:00 WBC RBC Hgb Hct MCV MCH MCHC RDW Plt Count MPV Sodium Potassium Chloride Carbon Dioxide Anion Gap BUN Creatinine Creat Clearance w eGFR Random Glucose Calcium Total Bilirubin AST ALT Alkaline Phosphatase Total Protein Albumin Urine Color Urine Appearance Urine pH Ur Specific [place] Urine Protein Urine Glucose (UA) Urine Ketones Urine Blood Urine Nitrite Urine Bilirubin Urine Urobilinogen Ur Leukocyte Esterase Urine RBC Urine WBC Ur Epithelial Cells Hyaline Casts Granular Casts Urine Mucus RPR Titer Nonreactive Pertinent Admission Physical Exam Findings: withdrawal sx - Treatment Hospital Course: Detox Protocol Followed, Rehab Referral Accepted - Medication Discharge Medications: Ambulatory Orders NK 02/27/17 No Known Home Medication 02/27/17 - Diagnosis (1) Alcohol-induced mood disorder Current Visit: Yes Status: Acute (2) RODOLFO (generalized anxiety disorder) Current Visit: Yes Status: Chronic (3) Panic disorder Current Visit: Yes Status: Chronic (4) Alcohol dependence with uncomplicated withdrawal Current Visit: No Status: Chronic (5) History of seizure Current Visit: No Status: Inactive - AMA Did Patient Leave Against Medical Advice: Yes
[2017-02-27 09:46] LABS: INR 1.01 (0.82-1.09); PROTHROMBIN TIME (PATIENT) 11.1 SEC (9.98-11.88)
[2017-02-27] MEDS: PRENATAL VITAMINS W/ FOLIC ACID TABLET (FP) PO SCH (10:23)
[2017-02-27] MEDS: POTASSIUM CHLORIDE ORAL LIQUID 20 MEQ/15 ML PO SCH (10:23)
[2017-02-27 11:45] VITALS: BP 128/87; PULSE 80; TEMP 96.4
[2017-02-27 15:00] LABS: URINE APPEARANCE SLCLOUDY; URINE BILIRUBIN NEGATIVE (NEGATIVE); URINE BLOOD NEGATIVE (NEGATIVE); URINE COLOR DKYELLOW; URINE GLUCOSE (UA) NEGATIVE (NEGATIVE); URINE KETONE NEGATIVE (NEGATIVE); URINE LEUK ESTERASE NEGATIVE (NEGATIVE); URINE NITRITE NEGATIVE (NEGATIVE); URINE PROTEIN NEGATIVE (NEGATIVE); URINE UROBILINOGEN NEGATIVE mg/dL (0.2-1.0)
[2017-02-27] MEDS ORDERED: chlordiazePOXIDE HCL 10 MG CAPSULE PO SCH (23:00)
== END 2017-02-27 10:30 | disposition left against medical advice (07) | DRG 770 ==
LOC: YASAS 09:00 → Y6N 17:26
PROVIDERS: ADMIT Internal Medicine; ATTEND Internal Medicine Addiction Medicine
PROC: HZ2ZZZZ Detoxification Services for Substance Abuse Treatment (ICD-10-PCS; principal; 2017-02-24)
DX: F10.230 Alcohol dependence with withdrawal, uncomplicated (principal); F41.8 Other specified anxiety disorders; F41.1 Generalized anxiety disorder; G40.509 Epileptic seizures related to external causes, not intractable, without status epilepticus
CPT/HCPCS: 36415; 80053; 81003; 81015; 85027; 85610; 86593; 93005; 93010

== ENCOUNTER 2017-02-24 10:39 | Emergency (ER) | payer OTHER ==
[2017-02-24 10:54] VITALS: BMI 25.0
[2017-02-24] MEDS ORDERED: SODIUM CHLORIDE 1,000 ML IV STA (11:10)
--- NOTE | 2017-02-24 11:10 | PDOC ---
History of Present Illness - General History Source: Patient Exam Limitations: No Limitations - History of Present Illness Initial Comments: 02/24/17 11:25 The patient is a 32 year old male, BIBA from [facility] with a significant past medical history of prior EtOH abuse, who presents to the emergency department with RLE numbness, throat burning , and mild chest pain. The patient notes having a decrease in sensation in his right foot. He denies any recent injury or trauma to his RLE. Patient is currently detoxing from EtOH at [facility], last drink was at 7:00am today, and drinks 4 pints of vodka per day. As per [facility] once patient is medically cleared can return for admission. He denies any recent fevers, chills, headache or dizziness. He denies any recent nausea, vomit, diarrhea or constipation. He denies any recent shortness of breath. He denies any recent dysuria, frequency, urgency or hematuria. Allergies: NKA Past surgical history: None reported. Social History: Former smoker. See HPI. Primary Care Physician: None at this time. <Evelio Henriquez - Last Filed: 02/24/17 11:47> <Luda Edwards - Last Filed: 02/26/17 08:11> - General Chief Complaint: CVA/TIA Stated Complaint: WITHDRAWAL Time Seen by Provider: 02/24/17 10:54 Past History <Evelio Henriquez - Last Filed: 02/24/17 11:47> - Past Medical History Anemia: No Asthma: No Cancer: No Cardiac Disorders: No CVA: No COPD: No CHF: No Dementia: No Diabetes: No GI Disorders: No Disorders: No HTN: No Hypercholesterolemia: No Kidney Stones: No Liver Disease: No Suicide Attempt (Hx): No Seizures: Yes (alcohol related seizure) Thyroid Disease: No - Surgical History Abdominal Surgery: No Appendectomy: No Cardiac Surgery: No Cholecystectomy: No Lung Surgery: No Neurologic Surgery: No Orthopedic Surgery: No - Reproductive History Testicular Surgery: No - Immunization History Immunization Up to Date: Yes - Psycho/Social/Smoking Cessation Hx Anxiety: Yes Suicidal Ideation: No Smoking History: Former smoker Have you smoked in the past 12 months: No If you are a former smoker, when did you quit?: 2005 Cigars Per Day: 0 Information on smoking cessation initiated: No 'Breaking Loose' booklet given: 10/14/16 Hx Alcohol Use: Yes Drug/Substance Use Hx: No Substance Use Type: Alcohol Hx Substance Use Treatment: Yes ([facility] outpatient not completed) <Luda Edwards - Last Filed: 02/26/17 08:11> - Past Medical History Allergies/Adverse Reactions: Allergies Allergy/AdvReac Type Severity Reaction Status Date / Time No Known Drug Allergies Allergy Unknown Verified 02/24/17 10:41 CASHEW Allergy Severe Swelling Uncoded 02/24/17 10:41 NKDA Allergy Uncoded 02/24/17 10:41 Home Medications: Ambulatory Orders NK [No Known Home Medication] 04/03/16 Review of Systems - Review of Systems Able to Perform ROS?: Yes Comments:: 02/24/17 11:25 GENERAL/CONSTITUTIONAL: No fever or chills. No weakness. HEAD, EYES, EARS, NOSE AND THROAT: No change in vision. No ear pain or discharge. CARDIOVASCULAR: +chest pain No shortness of breath. RESPIRATORY: No cough, wheezing, or hemoptysis. GASTROINTESTINAL: No nausea, vomiting, diarrhea or constipation. GENITOURINARY: No dysuria, frequency, or change in urination. MUSCULOSKELETAL: No joint or muscle swelling or pain. No neck or back pain. SKIN: No rash NEUROLOGIC: +RLE numbness. No headache, vertigo, loss of consciousness, or change in strength/sensation. ENDOCRINE: No increased thirst. No abnormal weight change. HEMATOLOGIC/LYMPHATIC: No anemia, easy bleeding, or history of blood clots. ALLERGIC/IMMUNOLOGIC: No hives or skin allergy. <Evelio Henriquez - Last Filed: 02/24/17 11:47> *Physical Exam - Vital Signs Last Vital Signs Temp Pulse Resp BP Pulse Ox 98.2 F 84 18 147/98 96 02/24/17 10:41 02/24/17 10:41 02/24/17 10:41 02/24/17 10:41 02/24/17 10:41 - Physical Exam Comments: 02/24/17 11:47 GENERAL: Awake, alert, and fully oriented, in no acute distress but Tearful on interview. HEAD: No signs of trauma EYES: PERRLA, EOMI, sclera anicteric, conjunctiva clear ENT: Auricles normal inspection, hearing grossly normal, nares patent, oropharynx clear without exudates. Moist mucosa. +Tongue fasciculations NECK: Normal ROM, supple, no lymphadenopathy, JVD, or masses LUNGS: Breath sounds equal, clear to auscultation bilaterally. No wheezes, and no crackles HEART: Regular rate and rhythm, normal S1 and S2, no murmurs, rubs or gallops ABDOMEN: Soft, nontender, normoactive bowel sounds. No guarding, no rebound. No masses EXTREMITIES: Normal range of motion, no edema. No clubbing or cyanosis. No cords, erythema, or tenderness. Decrease sensation in R calf and toes. Fine tremors in his hands. NEUROLOGICAL: Cranial nerves II through XII grossly intact. Normal speech, normal gait SKIN: Warm, Dry, normal turgor, no rashes or lesions noted. <Evelio Henriquez - Last Filed: 02/24/17 11:47> - Vital Signs Last Vital Signs Temp Pulse Resp BP Pulse Ox 98.2 F 84 18 147/98 96 02/24/17 10:41 02/24/17 10:41 02/24/17 10:41 02/24/17 10:41 02/24/17 10:41 <Luda Edwards - Last Filed: 02/26/17 08:11> ED Treatment Course - LABORATORY CBC & Chemistry Diagram: 02/24/17 11:40 02/24/17 11:40 <Evelio Henriquez - Last Filed: 02/24/17 11:47> - LABORATORY CBC & Chemistry Diagram: 02/24/17 11:40 02/24/17 11:40 <Luda Edwards - Last Filed: 02/26/17 08:11> Medical Decision Making - Medical Decision Making 02/24/17 16:03 Case d/w Dr. Villegas. He has had two negative CE. I have given librium 100mg total as well as valium 10 mg in ED for withdrawal symptoms. Medically cleared for transfer back to [facility] intake. <Luda Edwards - Last Filed: 02/26/17 08:11> *DC/Admit/Observation/Transfer - Attestations Scribe Attestion: 02/24/17 11:25 Documentation prepared by Evelio Henriquez, acting as medical review specialist for Luda Edwards MD. <Evelio Henriquez - Last Filed: 02/24/17 11:47> - Discharge Dispostion Admit: No <Luda Edwards - Last Filed: 02/26/17 08:11> Diagnosis at time of Disposition: Alcohol dependence, Alcohol dependence with uncomplicated withdrawal - Discharge Dispostion Disposition: I.P. ALCOHOL/SUBS ABUSE REHAB Condition at time of disposition: Stable - Patient Instructions Printed Discharge Instructions: DI for Alcohol Abuse
[2017-02-24] MEDS ORDERED: FOLIC ACID INJECTION - 1 MG, THIAMINE HCL 100 MG, MULTIVIT INJECTION ADULT 10 ML in SOD... IVPB ONE (11:36)
[2017-02-24] MEDS ORDERED: FAMOTIDINE 20 MG/50 ML IVPB 50 ML IVPB ONE ×2 (11:36→12:02)
[2017-02-24] MEDS ORDERED: chlordiazePOXIDE HCL 25 MG CAPSULE PO ONE ×2 (11:46→13:52)
[2017-02-24 11:49] LABS: BASOPHIL 0.8 % (0-2.0); EOSINOPHIL 0.1 % (0-4.5); MCH 28.2 pg (25.7-33.7); MCHC 33.2 g/dl (32.0-35.9); MEAN CELL VOLUME 85.1 fl (80-96); NEUTROPHILS 84.6 % (42.8-82.8); PLATELET COUNT 116 K/MM3 (134-434); RDW 15.3 % (11.9-15.9)
[2017-02-24] MEDS ORDERED: chlordiazePOXIDE HCL 25 MG CAPSULE ONE ×2 (12:02→14:09)
[2017-02-24 12:17] LABS: ALBUMIN 4.9 g/dl (3.4-5.0); ANION GAP 18 (8-16); BILIRUBIN,TOTAL 0.8 mg/dL (0.2-1.0); CO2 26 mmol/L (21-32); CREATININE 0.8 mg/dL (0.7-1.3); GLUCOSE,RANDOM 98 mg/dL (74-106); SGOT/AST 199 U/L (15-37); SGPT/ALT 156 U/L (12-78); TOT PROT 8.6 g/dl (6.4-8.2)
[2017-02-24 12:41] LABS: ALK PHOS 74 U/L (45-117); CPK 528 IU/L (39-308); TROPONIN I < 0.02 ng/ml (0.00-0.05)
[2017-02-24] MEDS ORDERED: diazePAM CARPU-JECT 10 MG/2 ML DISP.SYRIN IVPUSH ONE (13:52)
[2017-02-24 15:30] LABS: CPK 440 IU/L (39-308); TROPONIN I < 0.02 ng/ml (0.00-0.05)
[2017-02-24 16:24] VITALS: BP 118/71; PULSE 81; TEMP 98.1
--- NOTE | 2017-02-26 12:17 | EKG ---
Test Reason : Blood Pressure : / mmHG Vent. Rate : 088 BPM Atrial Rate : 088 BPM P-R Int : 148 ms QRS Dur : 076 ms QT Int : 366 ms P-R-T Axes : -13 058 066 degrees QTc Int : 442 ms NORMAL SINUS RHYTHM NONSPECIFIC ST-T ABNORMALITIES WHEN COMPARED WITH ECG OF 14-OCT-2016 14:48, NO SIGNIFICANT CHANGE WAS FOUND REPEAT INDICATED Confirmed by BENNIE MICHAEL MD ([id number] on 02/26/2017 12:17:49 PM Referred By: Confirmed By:BENNIE MICHAEL MD
== END 2017-02-24 16:25 | disposition other institution (70) ==
LOC: JER 10:39
PROC: 3E0337Z Introduction of Electrolytic and Water Balance Substance into Peripheral Vein, Percutaneous Approach (ICD-10-PCS; principal; 2017-02-24)
PROC: 3E033GC Introduction of Other Therapeutic Substance into Peripheral Vein, Percutaneous Approach (ICD-10-PCS; 2017-02-24)
PROC: 3E033GC Introduction of Other Therapeutic Substance into Peripheral Vein, Percutaneous Approach (ICD-10-PCS; 2017-02-24)
PROC: 3E033NZ Introduction of Analgesics, Hypnotics, Sedatives into Peripheral Vein, Percutaneous Approach (ICD-10-PCS; 2017-02-24)
DX: F10.230 Alcohol dependence with withdrawal, uncomplicated (principal); G40.509 Epileptic seizures related to external causes, not intractable, without status epilepticus; Z87.891 Personal history of nicotine dependence; Y90.8 Blood alcohol level of 240 mg/100 ml or more
CPT/HCPCS: 36415; 80053; 80307; 82553; 82607; 84484; 85025; 93005; 93010; 96361; 96365; 96366; 96367; 96374; 99282-25